=== PATIENT | female | born 1975 | race Caucasian/White ===

== ENCOUNTER 2021-10-13 09:42 | Day surgery (SDC) | payer OTHER ==
[~2021-10-13] VITALS: Ht 157.5 cm; Wt 76.2 kg
[2021-10-13] MEDS ORDERED: fentaNYL citrate 0.05 MG/ML VIAL ONE (12:22)
[2021-10-13] MEDS ORDERED: MIDAZOLAM 2 MG/2 ML VIAL ONE (12:23)
[2021-10-13] MEDS ORDERED: MIDAZOLAM 2 MG/2 ML VIAL IVP ONE (13:30)
== END 2021-10-13 13:00 | disposition home or self-care (01) ==
LOC: MDS 09:42 → MMU 09:43 → MDS 13:00
PROVIDERS: ATTEND Internal Medicine Gastroenterology
DX: R13.10 Dysphagia, unspecified (principal); K21.9 Gastro-esophageal reflux disease without esophagitis; K22.70 Barrett's esophagus without dysplasia; Z90.49 Acquired absence of other specified parts of digestive tract; Z79.899 Other long term (current) drug therapy; Z20.822 Contact with and (suspected) exposure to COVID-19
CPT/HCPCS: 43235; 81025; 87426; J2250; J3010